=== PATIENT | male | born 1965 | race Caucasian/White ===

== ENCOUNTER 2020-06-15 12:25 | Emergency (ER) | payer BC ==
[~2020-06-15] VITALS: Ht 177.8 cm; Wt 93.0 kg
--- NOTE | 2020-06-15 12:40 | ED Chest Pain ---
General Chief Complaint: Chest Pain Stated Complaint: CHEST PAIN Source: patient Exam Limitations: no limitations History of Present Illness Date Seen by Provider: Jun 15, 2020 Time Seen by Provider: 12:40 Initial Comments 54-year-old male presents with on and off chest pain for at least a week. Patient reports that in the epigastric/lower chest. That sometimes it radiates to his back. 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 He denies any previous heart history. He does have a history of high cholesterol and smoking. He denies any increased cough, fever, chills, wheezing, shortness of breath. Allergies and Home Medications Allergies Coded Allergies: morphine (Verified Allergy, Unknown, 06/15/20) Patient Home Medication List Home Medication List Reviewed: Yes Review of Systems Review of Systems Constitutional: No chills, No fever, No malaise Respiratory: Denies Cough, Denies Shortness of Air, Denies SOA at Rest Cardiovascular: See HPI, Chest Pain Gastrointestinal: See HPI, Abdominal Pain Genitourinary: No Symptoms Reported Musculoskeletal: no symptoms reported Skin: no symptoms reported Psychiatric/Neurological: No Symptoms Reported Endocrine: No Symptoms Reported Past Dbjwvxm-Whibaw-Meqrml Hx Past Med/Social Hx: Reviewed Nursing Past Med/Soc Hx Physical Exam Vital Signs Vital Signs - First Documented Capillary Refill : Height, Weight, BMI Height: '" Weight: lbs. oz. 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 Norm as Tested Skin: Normal Color, Warm/Dry Progress/Results/Core Measures Results/Orders Lab Results Laboratory Tests Test 06/15/20 12:35 06/15/20 12:55 Range/Units White Blood Count 5.9 4.3-11.0 10^3/uL Red Blood Count 4.63 4.35-5.85 10^6/uL Hemoglobin 14.6 13.3-17.7 G/DL Hematocrit 42 40-54 % Mean Corpuscular Volume 91 80-99 FL Mean Corpuscular Hemoglobin 32 25-34 PG Mean Corpuscular Hemoglobin Concent 35 32-36 G/DL Red Cell Distribution Width 13.7 10.0-14.5 % Platelet Count 225 130-400 10^3/uL Mean Platelet Volume 10.7 H 7.4-10.4 FL Neutrophils (%) (Auto) 50 42-75 % Lymphocytes (%) (Auto) 39 12-44 % Monocytes (%) (Auto) 8 0-12 % Eosinophils (%) (Auto) 3 0-10 % Basophils (%) (Auto) 1 0-10 % Neutrophils # (Auto) 3.0 1.8-7.8 X 10^3 Lymphocytes # (Auto) 2.3 1.0-4.0 X 10^3 Monocytes # (Auto) 0.5 0.0-1.0 X 10^3 Eosinophils # (Auto) 0.2 0.0-0.3 10^3/uL Basophils # (Auto) 0.0 0.0-0.1 10^3/uL Sodium Level 143 135-145 MMOL/L Potassium Level 4.0 3.6-5.0 MMOL/L Chloride Level 111 H 98-107 MMOL/L Carbon Dioxide Level 21 21-32 MMOL/L Anion Gap 11 5-14 MMOL/L Blood Urea Nitrogen 14 7-18 MG/DL Creatinine 0.79 0.60-1.30 MG/DL Estimat Glomerular Filtration Rate > 60 BUN/Creatinine Ratio 18 Glucose Level 95 70-105 MG/DL Calcium Level 8.9 8.5-10.1 MG/DL Corrected Calcium 8.8 8.5-10.1 MG/DL Magnesium Level 2.1 1.6-2.4 MG/DL Total Bilirubin 0.5 0.1-1.0 MG/DL Aspartate Amino Transf (AST/SGOT) 53 H 5-34 U/L Alanine Aminotransferase (ALT/SGPT) 66 H 0-55 U/L Alkaline Phosphatase 67 40-136 U/L Myoglobin 25.8 10.0-92.0 NG/ML Troponin I < 0.028 <0.028 NG/ML B-Type Natriuretic Peptide 152.2 H <100.0 PG/ML Total Protein 7.0 6.4-8.2 GM/DL Albumin 4.1 3.2-4.5 GM/DL Lipase 11 8-78 U/L Prothrombin Time 12.1 L 12.2-14.7 SEC INR Comment 0.9 0.8-1.4 Activated Partial Thromboplast Time 27 24-35 SEC D-Dimer 0.27 0.00-0.49 UG/ML My Orders Orders - ARNOLD GARCIA DO Cbc With Automated Diff (06/15/20 12:40) Magnesium (06/15/20 12:40) Chest 1 View, Ap/Pa Only (06/15/20 12:40) Ekg Tracing (06/15/20 12:40) Comprehensive Metabolic Panel (06/15/20 12:40) Myoglobin Serum (06/15/20 12:40) Protime With Inr (06/15/20 12:40) Partial Thromboplastin Time (06/15/20 12:40) Monitor-Rhythm Ecg Trace Only (06/15/20 12:40) Lipid Panel (06/16/20 06:00) Ed Iv/Invasive Line Start (06/15/20 12:40) Lipase (06/15/20 12:40) BNP (06/15/20 12:40) Fibrin Degradation Products (06/15/20 12:40) Troponin I (06/15/20 12:40) Famotidine Injection (Pepcid Injection) (06/15/20 13:15) Aspirin Chewable Tablet (Baby Aspirin Ch (06/15/20 13:15) Medications Given in ED Current Medications Medications Dose Ordered Sig/Domenica Route Start Time Stop Time Status Last Admin Dose Admin Aspirin 324 mg ONCE ONCE PO 06/15/20 13:15 06/15/20 13:16 DC 06/15/20 13:16 324 MG Famotidine 20 mg ONCE ONCE IVP 06/15/20 13:15 06/15/20 13:16 DC 06/15/20 13:16 20 MG Vital Signs/I&O 06/15/20 06/15/20 12:30 12:30 Temp 36.7 Pulse 67 Resp 18 B/P (MAP) 174/103 (126) Pulse Ox 97 O2 Delivery Room Air Room Air Progress Progress Note : Time: 13:35 Progress Note Patient with negative EKG, troponin and chest x-ray. As I was discussing results with patient he clarified that his pain actually improves with use and activity. He is been using topical lidocaine and Biofreeze and that is helped. I did discuss with him that it does not appear to be cardiac at this time especially one on for at least a week with a negative troponin and no EKG changes. I did stress that he needs a follow-up with a optical effects layout person for outpatient stress test in about further evaluation. 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 Patient is here from [place]. I recommended he started daily aspirin. Patient stressed he was concerned that he might have gotten COVID however he was tested at [facility] in the results came back negative. Patient stable and will be discharged home. Initial ECG Impression Date: Jun 15, 2020 Initial ECG Impression Time: 13:32 Initial ECG Rate: 63 Initial ECG Rhythm: Normal Sinus Initial ECG Intervals Mild abnormal R-wave progression likely LVH Comment Likely LVH, normal sinus rhythm Diagnostic Imaging Diagonstic Imaging: Xray Plain Films/CT/US/NM/MRI: chest Comments [facility] [place] NAME: [facility] REC#: [id number] PT STATUS: REG ER : [id number] PHYSICIAN: ARNOLD GARCIA DO ADMIT DATE: 06/15/20/ER Draft Date of Exam:06/15/20 CHEST 1 VIEW, AP/PA ONLY EXAMINATION: Portable erect AP chest at 12:56 p.m. INDICATION: Chest pain. FINDINGS: There are no prior studies available for comparison. The heart size is within normal limits. The lungs are generally clear although the peripheries of each lung base are partially obscured by overlying breast/chest tissue. The mediastinum is not widened. The osseous structures are intact. IMPRESSION: There is no evidence for an acute cardiopulmonary abnormality. Departure Impression Primary Impression: Chest wall pain Additional Impression: Chest pain Qualified Codes: R07.9 - Chest pain, unspecified Disposition: 01 HOME, SELF-CARE Condition: Stable Departure-Patient Inst. Patient Instructions: Chest Pain That Is Not Caused by the Heart (DC), Chest Pain (DC), Costochondritis (DC) Add. Discharge Instructions: Follow-up with your primary care provider to arrange for outpatient stress test and cardiology consult as soon as possible Start a baby aspirin daily All discharge instructions reviewed with patient and/or family. Voiced understanding. ARNOLD GARCIA DO Jun 15, 2020 12:40
[2020-06-15 12:49] LABS: BASOPHILS % (AUTO) 1 % (0-10); EOSINOPHILS # (AUTO) 0.2 10^3/uL (0.0-0.3); EOSINOPHILS % (AUTO) 3 % (0-10); HEMATOCRIT 42 % (40-54); HEMOGLOBIN 14.6 G/DL (13.3-17.7); LYMPHOCYTES # (AUTO) 2.3 X 10^3 (1.0-4.0); LYMPHOCYTES % (AUTO) 39 % (12-44); MEAN CORPUSCULAR HEMOGLOBIN 32 PG (25-34); MEAN CORPUSCULAR HGB CONC 35 G/DL (32-36); MEAN CORPUSCULAR VOLUME 91 FL (80-99); MEAN PLATELET VOLUME 10.7 FL (7.4-10.4); MONOCYTES # (AUTO) 0.5 X 10^3 (0.0-1.0); MONOCYTES % (AUTO) 8 % (0-12); NEUTROPHILS % (AUTO) 50 % (42-75); PLATELET COUNT 225 10^3/uL (130-400); RED CELL DISTRIBUTION WIDTH 13.7 % (10.0-14.5); WHITE BLOOD COUNT 5.9 10^3/uL (4.3-11.0)
[2020-06-15 12:52] LABS: ALBUMIN 4.1 GM/DL (3.2-4.5); CHLORIDE 111 MMOL/L (98-107); SODIUM 143 MMOL/L (135-145)
[2020-06-15 12:53] LABS: CALCIUM 8.9 MG/DL (8.5-10.1)
[2020-06-15 12:54] LABS: GLUCOSE 95 MG/DL (70-105)
[2020-06-15 12:55] LABS: CARBON DIOXIDE 21 MMOL/L (21-32)
--- NOTE | 2020-06-15 12:55 | NUR ---
Repeat blue top drawn from IV site et sent to lab.
[2020-06-15 12:56] LABS: BILIRUBIN,TOTAL 0.5 MG/DL (0.1-1.0)
[2020-06-15 12:58] LABS: ALKALINE PHOSPHATASE 67 U/L (40-136); CREATININE SERUM 0.79 MG/DL (0.60-1.30); GFR ESTIMATED > 60
[2020-06-15 12:59] LABS: BUN/CREATININE RATIO 18
[2020-06-15 13:01] LABS: ALANINE AMINOTRANSFERASE 66 U/L (0-55); MAGNESIUM 2.1 MG/DL (1.6-2.4)
[2020-06-15 13:02] LABS: LIPASE 11 U/L (8-78)
--- NOTE | 2020-06-15 13:08 | Diagnostic Imaging Report ---
EXAMINATION: Portable erect AP chest at 12:56 p.m. INDICATION: Chest pain. FINDINGS: There are no prior studies available for comparison. The heart size is within normal limits. The lungs are generally clear although the peripheries of each lung base are partially obscured by overlying breast/chest tissue. The mediastinum is not widened. The osseous structures are intact. IMPRESSION: There is no evidence for an acute cardiopulmonary abnormality. Dictated by: Dictated on workstation # [id number]
[2020-06-15] MEDS ORDERED: FAMOTIDINE 20MG/2ML IV (PEPCID) IVP ONE (13:15)
[2020-06-15] MEDS ORDERED: ASPIRIN 81 MG CHEW (CHILDREN'S ASA) PO ONE (13:15)
[2020-06-15 13:21] LABS: INR 0.9 (0.8-1.4); PROTHROMBIN TIME PATIENT 12.1 SEC (12.2-14.7)
[2020-06-15 13:50] VITALS: BP 142/98
== END 2020-06-15 13:51 | disposition home or self-care (01) ==
LOC: ER 12:30
DX: R07.89 Other chest pain (principal); F17.200 Nicotine dependence, unspecified, uncomplicated; Z88.5 Allergy status to narcotic agent
CPT/HCPCS: 36415; 71045; 80053; 83690; 83735; 83874; 83880; 84484; 85025; 85379; 85610; 85730; 93005; 93041